=== PATIENT | male | born 1985 | race African-American/Black ===

== ENCOUNTER 2018-03-02 13:07 | Emergency (ER) | payer MEDICAID ==
[~2018-03-02] VITALS: Ht 170.2 cm; Wt 61.0 kg
[2018-03-02] MEDS ORDERED: IBUPROFEN 600MG TABLET PO ONE (20:00)
[2018-03-02 21:53] VITALS: BP 114/71
== END 2018-03-02 21:56 | disposition home or self-care (01) ==
LOC: ER 13:07
DX: J06.9 Acute upper respiratory infection, unspecified (principal)
CPT/HCPCS: 87804; 99284